=== PATIENT | female | born 1945 | race Caucasian/White ===

== ENCOUNTER 2019-07-29 09:36 | Emergency (ER) | payer OTHER ==
[2019-07-29] MEDS ORDERED: METOPROLOL TARTRATE 5 MG/5 ML VIAL IVPUSH ONE ×2 (09:48→10:50)
--- NOTE | 2019-07-29 09:53 | PDOC ---
History of Present Illness - General Chief Complaint: Weakness Stated Complaint: AFIB, WEAK SHORT OF BREATH 10 DAYS Time Seen by Provider: 07/29/19 09:40 History Source: Patient, Spouse ( at bedside.) Exam Limitations: No Limitations - History of Present Illness Initial Comments: HPI: 74 y/o female presenting to [facility] from the clinic of Dr. Benson complaining of 10 days of generalized weakness and exertional dyspnea. Denies orthopnea or lower extremity swelling. Found to be in rapid a-fib in the clinic. No h/o similar symptoms. Pt is on chronic methylprednisolone for PMR. Was on an increased dose for 7 days before returning back to chronic dose 2 days ago. Denies recent illness, including fevers and chills. PE risk factors - Denies unilateral leg swelling or area of redness - Denies surgery or trauma ?4 weeks ago requiring treatment with general anesthesia - Denies oral contraceptives, hormone replacement or estrogenic hormones - Denies malignancy w/ treatment within 6 months or palliative care - Denies recent long car rides, plane trips, or other long periods of immobilization - Denies personal h/o DVT or PE - Denies personal or familial h/o blood clotting disorders Oncologist: Dr. Sarmiento at [facility] Play Back Operator: Dr. Dimitrios Vanessa at [facility] Social Hx: - EtOH: Denies - Tobacco: Denies - Street Drugs: Denies Medical Hx: - PMR - H/o Lymphoma s/p chemotherapy approx. 10 years ago - HTN Surgical Hx: - Pt denies past surgical history. Review of Systems: In addition to that documented in the HPI above, the additional ROS was obtained : Constitutional- Denies fevers or chills Head- Denies vision changes ENMT- Denies sore throat CV- Denies chest pain Resp- Per HPI GI- Denies abdominal pain, vomiting, or diarrhea - Denies painful urination, hematuria MSK- Denies recent trauma Skin- Denies new rashes Neuro- Denies new numbness, tingling, or focal arm /leg weakness Endocrine- Denies polyuria Heme- Denies bleeding or bruising Physical Examination: Vital signs and nursing notes reviewed. Constitutional- Nontoxic adult female in no acute distress but mild obvious discomfort. Found semi-fowlers on hospital bed. Answered all questions appropriately and completely. Head- Normocephalic. No obvious external signs of trauma. Eyes- Sclerae white. Ears- Hearing grossly intact. Nose- No nasal discharge. Neck- Supple, trachea is midline. No JVD. No R or L carotid bruit. Cardiovascular / Chest- Tachycardic. Irregularly irregular rate and rhythm. No murmur, rubs, clicks, or gallops. Peripheral pulses- radial pulses full. No anterior chest wall tenderness. Trace pretibial edema bilaterally. Respiratory- Breathing unlabored. Speaking in multi-word responses without pausing. Equal chest rise and fall. Clear to auscultation bilaterally. No stridor, no wheezing, no rhonchi. Good aeration to bilateral lower ortega. Gastrointestinal- abdomen is soft, non-tender, non-distended. Neuro- Alert and oriented x4. Moving all four extremities spontaneously. No facial asymmetry. No slurred speech. Skin- Warm, dry, and intact. No bruising, rashes, or other lesions. Psych- Affect- appropriate. Mood- normal. Speech was non-labored, non- pressured. MDM: 74 y/o female presenting with generalized weakness and exertional dyspnea. Found to be in rapid atrial fibrillation with borderline hypotension (MAP >65). Hypoxic on room air, which improved with 2LPM via nasal cannula. EKG unremarkable for ischemic changes. Troponin not elevated. Chest CTA remarkable for bilateral pulmonary embolisms with extensive chest adenopathy concern for lymphoma. Given single dose of Lopressor before PEs were discovered. Will hold further rate controlling agents and volume resuscitate with NS IVFB. 29 Jul 2019 13:17 PM Telephone discussion with Dr. Delvalle. Verbally appraised of the pts HPI, ED course, and current plan of management. Requested Echo to evaluate for right heart strain before considering intervention. 29 Jul 2019 13:45 PM Telephone discussion with Dr. Guy of hospitalist service. Verbally appraised of the pts HPI, ED course, and current plan of management. Suggested the pt may be better serviced by a tertiary care center given metastatic lymphoma as a complicating factor with the bilateral pulmonary embolism. HCT remarkable for metastatic lesion without hemorrhage. 29 Jul 2019 14:09 PM Telephone discussion with Dr. Bernstein of [facility] ICU service. Verbally appraised of the pts HPI, ED course, and current plan of management. Will accept the pt to [facility] ED for initiation of critical care. Echo performed bedside. Suspicious for right heart strain per ED wet read. Awaiting official cardiology report. RV dilated noted on Echo report. Will initiate herpain bolus then drip. Pt care turned over the [facility] ALS transfer unit. Past History - Past Medical History Allergies/Adverse Reactions: Allergies Allergy/AdvReac Type Severity Reaction Status Date / Time clindamycin Allergy Intermediate Rash Verified 07/29/19 09:55 Home Medications: Ambulatory Orders Carvedilol 12.5 mg PO BID tablet 06/23/13 Losartan Potassium 50 mg PO DAILY tablet 06/23/13 Cholecalciferol (Vitamin D3) [Vitamin D3] 2,000 unit PO DAILY capsule 10/23/15 Ferrous Sulfate [Iron] 325 mg PO DAILY tablet 05/16/16 Pantoprazole Sodium 40 mg PO DAILY 07/29/19 methylPREDNISolone [Methylprednisolone] 4 mg PO DAILY 07/29/19 ED Treatment Course - LABORATORY CBC & Chemistry Diagram: 07/29/19 09:43 07/29/19 09:43 - RADIOLOGY Radiology Studies Ordered: Category Date Time Status CHEST X-RAY PORTABLE* [RAD] Stat Radiology 07/29/19 09:41 Ordered Medical Decision Making - Critical Care Time Total Critical Care Time (minutes): 60 Critical Care Statement: The care of this patient involved high complexity decision making to prevent further life threatening deterioration of the patient 's condition and/or to evaluate & treat vital organ system(s) failure or risk of failure. Discharge - Discharge Information Problems reviewed: Yes Clinical Impression/Diagnosis: Bilateral pulmonary embolism, Hypoxia, Lymphoma involving lung, Brain metastases, Rapid atrial fibrillation Condition: Critical Disposition: TRANSFER ACUTE CARE/OTHER HOSP - Admission No - Follow up/Referral Referrals: Renzo Benson MD [Primary Care Provider] - - Patient Discharge Instructions - Post Discharge Activity - Transfer to Acute Care Facility Receiving Facility Name: [facility] Accepting Physician:: Dr. Bernstein of Critical Care Service
[2019-07-29 09:54] VITALS: BMI 22.8
[2019-07-29] MEDS ORDERED: SODIUM CHLORIDE 0.9% 500 ML INFUS.BAG IV ONE ×3 (09:55→13:21)
[2019-07-29] MEDS ORDERED: METOPROLOL TARTRATE 5 MG/5 ML VIAL ONE (09:56)
[2019-07-29 10:08] LABS: BASO % 0.6 % (0-2.0); EOS % 0.6 % (0-4.5); HEMATOCRIT 39.8 % (32.4-45.2); HEMOGLOBIN 13.2 GM/dl (10.7-15.3); LYMPH % 2.6 % (8-40); MCH 31.6 pg (25.7-33.7); MCHC 33.3 g/dl (32.0-36.0); MEAN CELL VOLUME 94.9 fl (80-96); MEAN PLT VOLUME 7.6 fl (7.5-11.1); MONO % 10.1 % (3.8-10.2); NEUT % 86.1 % (42.8-82.8); PLATELET COUNT 217 K/MM3 (134-434); RBC 4.19 M/mm3 (3.60-5.2); RDW 13.5 % (11.6-15.6); WHITE BLOOD COUNT 10.4 K/mm3 (4.0-10.8)
[2019-07-29 10:17] LABS: BILIRUBIN,TOTAL 1.3 mg/dl (0.2-1); CALCIUM 9.2 mg/dl (8.5-10); MAGNESIUM 1.4 mg/dL (1.8-2.4); PHOSPHOROUS 2.9 mg/dl (2.5-4.9); POTASSIUM 3.4 mmol/L (3.5-5.1); TOT PROT 5.2 g/dl (6.4-8.2)
[2019-07-29 10:18] LABS: ACTIVATED PTT 24.1 SECONDS (25.2-36.5)
[2019-07-29 10:23] LABS: INR 1.31 (0.82-1.09); PROTHROMBIN TIME (PATIENT) 14.6 SEC (10.2-13.0)
--- NOTE | 2019-07-29 10:24 | PDOC ---
Attending Attestation - Resident Resident Name: Rodriguez Flores - ED Attending Attestation I have performed the following: I have examined & evaluated the patient, The case was reviewed & discussed with the resident, I agree w/resident's findings & plan, Exceptions are as noted - HPI HPI: 07/29/19 10:22 74 F with h/o HTN, PMR, lymphoma s/p chemo, presenting to ED with 10 days of SOB and weakness. Pt denies CP. Denies F/C. Denies N/V/D. States that she has had progressively worsening SOB. No leg swelling or orthopnea. She notes that she has had decreased PO intake due to feeling weak. No prior h/o arrhythmia. - Physicial Exam PE: 07/29/19 10:23 "GENERAL: Awake, alert, and fully oriented, in no acute distress. HEAD: No signs of trauma EYES: PERRLA, EOMI, sclera anicteric, conjunctiva clear ENT: Auricles normal inspection, hearing grossly normal, nares patent, oropharynx clear without exudates. Moist mucosa NECK: Nontender, no stepoffs, Normal ROM, supple, no lymphadenopathy, JVD, or masses LUNGS: Breath sounds equal, clear to auscultation bilaterally. No wheezes, and no crackles HEART: + tachycardic, irregular, no murmurs, rubs or gallops ABDOMEN: Soft, nontender, normoactive bowel sounds. No guarding, no rebound. No masses EXTREMITIES: Normal range of motion, no edema. No clubbing or cyanosis. No cords, erythema, or tenderness NEUROLOGICAL: Cranial nerves II through XII intact. 5/5 strength and sensation in all extremities, Normal speech, normal gait, normal cerebellar function SKIN: Warm, Dry, normal turgor, no rashes or lesions noted. - Critical Care Time Total Critical Care Time: 180 Critical Care Statement: The care of this patient involved high complexity decision making to prevent further life threatening deterioration of the patient 's condition and/or to evaluate & treat vital organ system(s) failure or risk of failure. - Medical Decision Making 07/29/19 10:24 74 F with SOB and weakness. Found to be in new onset afib with RVR. Possibly due to dehydration. No s/s infectious process. Pt also slightly hypoxic in ED. WIll evaluate for PE - Labs - CXR - CTA chest - IVF, rate control 07/29/19 13:30 CTA shows bilateral central PEs, as well as likely recurrence of lymphoma Will obtain head CT 07/29/19 14:01 Discussed with IR and hospitalist attending. Given persistent hypotension and tachycardia, will initiate txfer to tertiary care center for definitive management and higher level of care. 07/29/19 14:55 Pt accepted to [facility] Head CT shows likely brain met
[2019-07-29 11:22] VITALS: TEMP 98.5
[2019-07-29 12:11] LABS: EPITHELIAL CELLS MANY /hpf
[2019-07-29] MEDS ORDERED: HEPARIN NA (PORCINE) 5,000 UNITS/ML 1ML VIAL IVPUSH PRN ×2 (15:07)
--- NOTE | 2019-07-29 15:10 | ECHO ---
Name: VERONICA CERDA Exam:Adult Echocardiogram Study Date: 07/29/2019 02:17 PM Age: 74 yrs Reason For Study: bialateral PE Height: 62 in Weight: 126 lb BSA: 1.6 m2 MMode/2D Measurements & Calculations IVSd: 1.1 cm Ao root diam: 2.8 cm LVIDd: 3.8 cm LA dimension: 3.4 cm LVIDs: 2.2 cm LVPWd: 1.4 cm EDV(Teich): 62.2 ml LVOT diam: 2.0 cm ESV(Teich): 17.0 ml Doppler Measurements & Calculations MV E max edie: 135.2 cm/sec MV A max edie: 68.2 cm/sec MV dec slope: 2011 cm/sec2 MV E/A: 2.0 Ao V2 max: 125.6 cm/sec LV V1 max P.2 mmHg Ao max P.3 mmHg LV V1 max: 102.8 cm/sec LAURA(V,D): 2.5 cm2 MR max edie: 452.7 cm/sec TR max edie: 323.7 cm/sec MR max P.0 mmHg TR max P.1 mmHg PA V2 max: 77.5 cm/sec PA max P.4 mmHg Procedure A complete two-dimensional transthoracic echocardiogram was performed (2D, M-mode, Doppler and color flow Doppler). Left Ventricle The left ventricular size, thickness and function are normal. The left ventricular ejection fraction is normal. Ejection Fraction = 60-65%. The left ventricular wall motion is normal. Right Ventricle The right ventricle is mildly dilated. The right ventricular systolic function is normal. Atria Normal left and right atrial size and function. Mitral Valve There is mild mitral regurgitation. Tricuspid Valve There is moderate tricuspid regurgitation. There is moderate pulmonary hypertension. Aortic Valve No hemodynamically significant valvular aortic stenosis. No aortic regurgitation is present. Pulmonic Valve There is no pulmonic valvular regurgitation. Great Vessels The aortic root is normal size. Pericardium/Pleura There is no pericardial effusion. Interpretation Summary The left ventricular size, thickness and function are normal The right ventricle is mildly dilated. The right ventricular systolic function is normal. There is mild mitral regurgitation. There is moderate tricuspid regurgitation. There is moderate pulmonary hypertension. MD Miles Jasso 07/29/2019 03:10 PM
[2019-07-29] MEDS ORDERED: HEPARIN - 25,000 UNIT in SODIUM CHLORIDE 495 ML IV SCH (15:15)
[2019-07-29] MEDS ORDERED: HEPARIN INFUSION - 25,000 UNITS/500 ML INFUS.BAG IVPB ONE (15:16)
[2019-07-29] MEDS ORDERED: HEPARIN NA (PORCINE) 5,000 UNITS/ML 1ML VIAL ONE (15:16)
[2019-07-29 15:23] VITALS: BP 100/61; PULSE 132
--- NOTE | 2019-07-30 13:12 | EKG ---
Test Reason : Blood Pressure : / mmHG Vent. Rate : 160 BPM Atrial Rate : 133 BPM P-R Int : 000 ms QRS Dur : 076 ms QT Int : 308 ms P-R-T Axes : 000 003 192 degrees QTc Int : 502 ms ATRIAL FIBRILLATION WITH RAPID VENTRICULAR RESPONSE NONSPECIFIC ST ABNORMALITY ABNORMAL ECG NO PREVIOUS ECGS AVAILABLE Confirmed by ZAYRA RODRIGUEZ MD ([id number]) on 07/30/2019 1:11:44 PM Referred By: CADY CROOK Confirmed By:ZAYRA RODRIGUEZ MD
== END 2019-07-29 15:32 | disposition short-term general hospital (02) ==
LOC: FER 09:36
PROC: 3E033GC Introduction of Other Therapeutic Substance into Peripheral Vein, Percutaneous Approach (ICD-10-PCS; principal; 2019-07-29)
PROC: 3E0337Z Introduction of Electrolytic and Water Balance Substance into Peripheral Vein, Percutaneous Approach (ICD-10-PCS; 2019-07-29)
DX: I26.99 Other pulmonary embolism without acute cor pulmonale (principal); R09.02 Hypoxemia; C85.90 Non-Hodgkin lymphoma, unspecified, unspecified site; I48.91 Unspecified atrial fibrillation; Z88.1 Allergy status to other antibiotic agents
CPT/HCPCS: 36415; 70450-TC; 71045-TC-FY; 71275-TC; 80053; 81003; 81015; 82550; 83735; 83880; 84100; 84436; 84443; 84484; 85025; 85610; 85730; 86850; 86900; 86901; 87086; 87186; 93005; 93306-TC; 99285-25; J1644